=== PATIENT | male | born 1960 | race Caucasian/White ===

== ENCOUNTER 2018-10-19 07:27 | Day surgery (SDC) | payer BC ==
[2018-10-19] MEDS ORDERED: ceFAZolin 2 GM PREMIX in ORs 2 GM/50 ML BAG IVPB ONE (08:08)
[2018-10-19] MEDS ORDERED: fentaNYL* 50 MCG/ML 2 ML VIAL (100 MCG VIAL) ONE (09:28)
[2018-10-19] MEDS ORDERED: Midazolam* 1 MG/ML 5 ML VIAL (5 MG) ONE (09:29)
[2018-10-19] MEDS ORDERED: Lidocaine 2% PF* 10 ML AMP ONE (10:17)
[2018-10-19] MEDS ORDERED: Propofol* 10 MG/ML 20 ML BTL ONE (10:36)
[2018-10-19] MEDS ORDERED: Naloxone* 0.4 MG/ML 1 ML VIAL IV PRN (10:55)
[2018-10-19 12:16] VITALS: BP 138/90
--- NOTE | 2018-10-19 22:27 | OP ---
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 OPERATIVE PROCEDURE: Cheilectomy of the left first MTP joint with interpositional arthroplasty with a 10 mm Cartiva. DESCRIPTION OF PROCEDURE: The patient was taken to the operating room where 2% lidocaine was placed around the first MTP joint. With an ankle Esmarch raised, we opened up longitudinally over the dorsum of the joint, medial lateral flap raised. We removed the rim osteophytes of the MTP joint. There was essentially no cartilage except for a plantar 30% where we cleaned the rim edge of the cartilage with a 15 blade and a small curette. The 10 mm Cartiva implant was placed in the center of the metatarsal head eburnated area and left a 2 mm proud to give a good distraction effect. We then irrigated and closed the capsule with 3-0 Vicryl subcu tissue and nylon for the skin and a compression dressing applied. [id number]/[facility] #: [id number] [facility]
== END 2018-10-19 12:28 | disposition home or self-care (01) ==
LOC: OR 07:27
PROVIDERS: ATTEND Orthopaedic Surgery
DX: M20.22 Hallux rigidus, left foot (principal); M19.072 Primary osteoarthritis, left ankle and foot; I10 Essential (primary) hypertension; J45.909 Unspecified asthma, uncomplicated; Z87.891 Personal history of nicotine dependence; J30.2 Other seasonal allergic rhinitis
CPT/HCPCS: C1776; J0690; J2001; J2250; J2704; J3010